=== PATIENT | male | born 1995 | race Caucasian/White ===

== ENCOUNTER 2018-07-10 12:31 | Emergency (ER) | payer SELFPAY ==
[~2018-07-10] VITALS: Ht 182.9 cm; Wt 108.8 kg
[2018-07-10 12:34] VITALS: BP 154/73; PULSE 83; RESP 16; Ht 182.9 cm; Wt 108.8 kg
[2018-07-10] MEDS ORDERED: ONDANSETRON (ODT) 4 MG TAB ODT STA (13:31)
--- NOTE | 2018-07-10 13:54 | ERD ---
ER Documentation Chief Complaint Chief Complaint ABDOMINAL PAIN X 2 DAYS WITH NAUSEA AND DIARRHEA HPI Patient 23-year-old male presented to ED for nausea vomiting left lower quadrant abdominal pain x2 days. Patient states he has had night sweats, body chills, fever for the past 2 days and has approximately 7 episodes of diarrhea. Patient states the pain is not radiating. The pain has been a constant 8 out of 10 since onset. The pain has not improved, the nausea has not improved, and the diarrhea has not improved. The patient denies any allergies to medications. Patient has past medical history of appendix removed at age 18. ROS All systems reviewed and are negative except as per history of present illness. Medications Home Meds Active Scripts Ondansetron Hcl* (Zofran*) 4 Mg Tablet, 4 MG PO Q6H for NAUSEA AND/OR VOMITING, #30 TAB Prov:STARLA MARISCAL PA-C 07/10/18 Allergies Allergies: Coded Allergies: No Known Allergy (Unverified , 07/10/18) PMhx/Soc History of Surgery: Yes (Appendix removal) FmHx Family History: No diabetes, No coronary disease, No other Physical Exam Vitals Vital Signs Date Temp Pulse Resp B/P (MAP) Pulse Ox O2 O2 Flow FiO2 Time Delivery Rate 07/10/18 98.3 83 16 154/73 100 12:34 (100) Physical Exam GENERAL: The patient is well-appearing, well-nourished, in no acute distress NECK: C-spine is soft and supple. There is no meningismus. There is no cervical lymphadenopathy. CHEST: Clear to auscultation bilaterally. There are no rales, wheezes or rhonchi. HEART: Regular rate and rhythm. No murmurs, clicks, rubs or gallops. ABDOMEN: Patient abdomen is nondistended, patient is tender to palpation in left lower quadrant.right lower quadrant soft nontender, negative Jonas's, McBurney's negative. BACK: Jonas's punch on the left side provoked pain to the left lower quadrant of the abdomen. Result Diagram: 07/10/18 1354 07/10/18 1354 Results 24 hrs Laboratory Tests Test 07/10/18 13:54 White Blood Count 8.0 10^3/ul Red Blood Count 5.91 10^6/ul Hemoglobin 17.0 g/dl Hematocrit 51.0 % Mean Corpuscular Volume 86.3 fl Mean Corpuscular Hemoglobin 28.8 pg Mean Corpuscular Hemoglobin Concent 33.3 g/dl Red Cell Distribution Width 12.1 % Platelet Count 221 10^3/UL Mean Platelet Volume 11.3 fl Immature Granulocytes % 0.500 % Neutrophils % 71.1 % Lymphocytes % 19.1 % Monocytes % 7.9 % Eosinophils % 1.1 % Basophils % 0.3 % Nucleated Red Blood Cells % 0.0 /100WBC Immature Granulocytes # 0.040 10^3/ul Neutrophils # 5.7 10^3/ul Lymphocytes # 1.5 10^3/ul Monocytes # 0.6 10^3/ul Eosinophils # 0.1 10^3/ul Basophils # 0.0 10^3/ul Nucleated Red Blood Cells # 0.0 10^3/ul Urine Color YELLOW Urine Clarity SLIGHTLY CLOUDY Urine pH 7.0 Urine Specific Friendly 1.026 Urine Ketones NEGATIVE mg/dL Urine Nitrite NEGATIVE mg/dL Urine Bilirubin NEGATIVE mg/dL Urine Urobilinogen NEGATIVE mg/dL Urine Leukocyte Esterase NEGATIVE Alexys/ul Urine Microscopic RBC 0 /HPF Urine Microscopic WBC 2 /HPF Urine Amorphous Crystals FEW /HPF Urine Hemoglobin NEGATIVE mg/dL Urine Glucose NEGATIVE mg/dL Urine Total Protein NEGATIVE mg/dl Sodium Level 140 mmol/L Potassium Level 4.1 mmol/L Chloride Level 106 mmol/L Carbon Dioxide Level 28 mmol/L Anion Gap 6 Blood Urea Nitrogen 23 mg/dl Creatinine 0.97 mg/dl Est Glomerular Filtrat Rate mL/min > 60 mL/min Glucose Level 109 mg/dl Calcium Level 9.6 mg/dl Total Bilirubin 0.6 mg/dl Direct Bilirubin 0.00 mg/dl Indirect Bilirubin 0.6 mg/dl Aspartate Amino Transf (AST/SGOT) 35 IU/L Alanine Aminotransferase (ALT/SGPT) 47 IU/L Alkaline Phosphatase 73 IU/L Total Protein 7.3 g/dl Albumin 4.5 g/dl Globulin 2.80 g/dl Albumin/Globulin Ratio 1.60 Current Medications Medications Dose Sig/Alea Start Time Status Last (Trade) Ordered Route PRN Stop Time Admin Dose Reason Admin Ondansetron 4 mg ONCE STAT 07/10/18 DC 07/10/18 HCl (Zofran ODT 13:31 07/10/18 13:52 Odt) 13:40 Procedures/MDM ED course: UA CBC CMP Abdominal CT The patient was stable throughout the ED course. The patient and/or family informed of laboratory and diagnostic imaging results throughout the ED course. Diagnostic imaging:CT abdomen and pelvis without contrast. Read by radiologist Albin Ramos MD PROCEDURE: CT abdomen and pelvis without contrast. CLINICAL INDICATION: Nausea. Vomiting. Diarrhea. Abdominal pain. Left lower quadrant pain TECHNIQUE: CT scan of the abdomen and pelvis without contrast was performed and is reconstructed at 2.5 mm contiguous axial intervals from the dome of the diaphragm to the inferior pubic rami.. The patient was scanned without intravenous contrast. Sagittal and coronal reformatted images were obtained from the axial source images. The calculated radiation dose measures 1226 mGy centimeters. The CTDI measures 19 mGy. Individualized dose optimization technique was used for the performance of this exam. This included 1. Automated exposure control. 2. Adjustment of the mA and / or kV according to the patient's size. 3. Use of iterative reconstructed technique. DICOM images are available. COMPARISON: None. FINDINGS: The lung bases are clear of any infiltrate or nodule. No effusion is seen. The liver is of normal size, contour and attenuation with no mass or ductal dilatation. No gallstones are visualized. No splenic, adrenal or pancreatic abnormalities present. Kidneys are of normal size and contour. No hydronephrosis, calculus or masses seen. Ureters are of normal course and caliber with no stone. No bladder mass or stone is present. Prostate and seminal vesicles are normal. There is no aneurysm. No adenopathy is present. No bowel mass or obstruction is present. The appendix is not confidently visualized.. No phlegmon, ascites or pneumoperitoneum is visualized. The osseous structures are intact. IMPRESSION: No evidence of urolithiasis, obstructive uropathy or diverticulitis. Nonvisualization appendix.. Medications given in ER: Zofran Patient tolerated medication well with no adverse reactions. Patient reported improvement in pain. Medical decision makin-year-old male presenting to the ER for left lower abdominal pain, nausea, vomiting and diarrhea. Patient states his pain is an 8 out of 10. Patient states the last time he had this much discomfort when he was 18 and had to have his appendix out. Patient's abdominal physical exam reveals tenderness to palpation in left lower quadrant. Jonas sign is negative, McBurney's point is nontender. Patient's has normal active bowel sounds. Patient denies any difficulty urinating. When assessing for CVA tenderness on the left side patient stated a provoked pain in his left lower quadrant of his abdomen. The patient is afebrile and vitals are stable but at this time I want to ensure the patient does not have diverticulitis, toxic megacolon. Abdominal CT was ordered and was unremarkable. Patient was given Zofran in the ER for nausea. On reassessment patient states nausea has resided. At this time I feel it is safe to discharge the patient and have Low suspicion for coronary syndrome, AAA, mesenteric ischemia, lower lobe pneumonia, DKA, bowel perforation, c holecystitis, choledocholithiasis, ascending cholangitis, hepatic abscess, pancreatitis, PUD, gastritis, GERD, splenic rupture, diverticulitis, UTI, pyelonephritis, nephrolithiasis, appendicitis, constipation, testicular torsion, epididymitis, urethritis, or prostatitis my abdominal pain male. Patient was advised he needs to follow-up with his primary care provider regarding this visit the symptoms most likely from a viral illness. Patient was advised to stay hydrated and was given prescription for Zofran. Patient plans to follow-up with his primary care provider as an agreement in the treatment plan. Patient had no further questions upon discharge Prescription for home: Zofran Discharge: At this time, patient is stable for discharge and outpatient management. I have instructed the patient to follow-up with his\her primary care physician in 1 to 2 days. I have discussed with the patient the possibility of needing to see a specialist for further work-up and imaging studies if symptoms persist. I have instructed the patient to promptly return to the ER for any new or worsening symptoms including increased pain, fever, nausea, vomiting, weakness or LOC. The patient and\or family expressed understanding of and agreement with this plan. All questions were answered. Home care instructions were provided. Disclaimer: Inadvertent spelling and grammatical errors are likely due to EHR\dictation software use and do not reflect on the overall quality of patient care. Also, please note that the electronic time recorded on the note does not necessarily reflect the actual time of the patient encounter. Departure Diagnosis: Primary Impression: Gastroenteritis Condition: Stable STARLA MARISCAL PA-C Jul 10, 2018 13:54
[2018-07-10] MEDS ORDERED: ONDA4TAB8 PO (14:37)
== END 2018-07-10 14:52 | disposition home or self-care (01) ==
LOC: FTE 12:31
DX: K52.9 Noninfective gastroenteritis and colitis, unspecified (principal)
CPT/HCPCS: 74176; 80053; 81001; 81003; 85025